=== PATIENT | female | born 1945 | race Caucasian/White ===

== ENCOUNTER 2016-10-14 08:55 | Inpatient (IN) | payer BC, MEDICARE ==
[~2016-10-14] VITALS: Ht 165.1 cm; Wt 123.4 kg
--- NOTE | ~2016-10-14 | WRIGHTHP ---
[place], [place] PATIENT HISTORY AND PHYSICAL EXAM NAME: [id number] UNIT #: [id number] ROOM: 506 DOCTOR: SAMANTHA MORRELL MD BIRTHDATE: [birth year] DOS: 10/14/2016 HISTORY OF PRESENT ILLNESS: The patient is very well known to us. The patient was on her way to work this morning when she experienced palpitations. She got to her office and noted that her heart was being irregular, so the ambulance was called and she was brought to the Emergency Room where she was found to be in rapid AFib. She has had history of atrial fibrillation, last episode was about 6 years ago. She has been fairly stable, has not had any problems recently. She denied having any complaints of chest pains, palpitations, does not have any fever or chills, has been taking all her medications regularly, does not have any nausea and emesis. She has chronic lymphedema, but there are no new changes noticed otherwise. She has not been drinking a lot of coffee or tea or any caffeinated drinks. PAST MEDICAL HISTORY: Significant for: 1. Last hospitalization for cholecystectomy, for gallstone pancreatitis a year ago. 2. Benign hypertension. 3. Type 2 diabetes mellitus, non-insulin dependent. 4. History of atrial fibrillation. 5. Myasthenia gravis. MEDICATIONS: She is on aspirin 81 daily, atorvastatin 10 daily, flecainide 100 b.i.d., glimepiride 4 mg daily, levothyroxine 50 mcg daily, lisinopril 40 daily. pyridostigmine 60 b.i.d. SOCIAL HISTORY: Nonsmoker, does not use any alcohol. 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 PHYSICAL EXAMINATION: GENERAL: She is morbidly obese. VITAL SIGNS: Graphic trend shows a pressure of 118/67, pulse of 83, respirations 16, temperature 98.5. LUNGS: Diminished breath sounds. No wheezes, rales or rhonchi heard. CARDIOVASCULAR: Irregular, heart rate in the low 100s. ABDOMEN: Obese, soft. EXTREMITIES: Chronic lymphedema. LABORATORY DATA: WBC count is normal at 5.9, hemoglobin 11.8, hematocrit 37.2. Comprehensive: Glucose 220, BUN 26, creatinine 1.29, sodium and potassium are normal. ASSESSMENT AND PLAN: 1. This is a patient who presents with atrial fibrillation with rapid ventricular response. She has history of atrial fibrillation about 5 years ago. She was on Xarelto for a short term at that time, was discontinued by Cardiology. We will arrange for IV heparin protocol, IV Cardizem, which has continued from the ER, beta blockers will be added. Once the heart rate is under control, we will discontinue the Cardizem. 2. Benign hypertension has been controlled in the past. Echocardiogram will be ordered. [place], [place] PATIENT HISTORY AND PHYSICAL EXAM NAME: DAY ALCANTARA UNIT #: [id number] ROOM: [facility] DOCTOR: SAMANTHA MORRELL MD BIRTHDATE: [birth year] 3. Type 2 diabetes mellitus, noninsulin dependent. Check blood sugars twice daily, coverage scale has been ordered along with a diet. SAMANTHA MORRELL MD CM:HISPHYS:PATIENT HISTORY AND PHYSICAL EXAMINATION 1400 [id number] SAMANTHA MORRELL MD 10/14/16 1442 interface
--- NOTE | ~2016-10-14 | DS ---
[place], [place] DISCHARGE SUMMARY NAME: DAY ALCANTARA UNIT #: [id number] ROOM: 506 DOCTOR: SAMANTHA MORRELL MD BIRTHDATE: [birth year] DOS: 10/16/2016 DIAGNOSES: 1. Paroxysmal atrial fibrillation with rapid ventricular response. 2. Long acting use of anticoagulation. 3. Chronic lymphedema. 4. Benign hypertension. 5. Type 2 diabetes mellitus, non-insulin dependent. 6. Myasthenia gravis. HOSPITAL COURSE: This patient is very well known to us, was noted to have a fast heart rate on her way to work. Ambulance was called at work and she was brought to the Emergency Room, heart rate was in the 130s. She was placed on IV Cardizem, IV heparin was admitted. After admission, heart rate slowed down, Lopressor was started and heart rate did come down significantly, sometimes dropped into the 30s. At that time, the Lopressor dosage was cut down. The patient has not had any episodes of rapid ventricular response since admission. She had an echocardiogram ordered, which showed normal LV function, but left atrial dilatation was noted. The patient was placed on Eliquis because this is one of the multiple episodes of AFib that she has had over the years. Dr. Bower was consulted who agreed on the treatment plan. The patient is relatively stable this morning. Plan is to discharge her to home today and follow up as an outpatient. The patient to go back to work on Friday. SAMANTHA MORRELL MD CM:DISCHARG 6 SAMANTHA MORRELL MD 10/16/16916 interface
--- NOTE | ~2016-10-14 | PR ---
[place], [place] PROGRESS NOTE NAME: DAY ALCANTARA UNIT #: [id number] ROOM: 506 DOCTOR: SAMANTHA MORRELL MD BIRTHDATE: [birth year] DOS: SUBJECTIVE: The patient had much better night. She has not had any complaints of dizziness or lightheadedness, does not have any chest pains or palpitations. OBJECTIVE: VITAL SIGNS: Graphic trend shows a pressure of 98/57, pulse of 48, respirations 20, temperature 98.4. LUNGS: Diminished breath sounds. No wheezes, rales or rhonchi heard. HEART: Regular. ABDOMEN: Obese, soft. EXTREMITIES: Without any edema. ASSESSMENT AND PLAN: 1. Paroxysmal atrial fibrillation with rapid ventricular response. The patient has been placed on anticoagulants and a low dose of Lopressor. I noted that she continues to have a slow heart rate, but is not dizzy or lightheaded, so we will maintain the Lopressor 25 mg right now, but will cut back the dosage as an outpatient if necessary. 2. Benign hypertension, controlled. 3. Type 2 diabetes mellitus. Blood sugars are within normal limits 109 this morning. The plan is to discharge her to home today. Echocardiogram showed normal left ventricular function. SAMANTHA MORRELL MD CM:PNTRANS [id number] SAMANTHA MORRELL MD 10/16/16 0923 interface
--- NOTE | ~2016-10-14 | PR ---
[place], [place] PROGRESS NOTE NAME: DAY ALCANTARA UNIT #: [id number] ROOM: 506 DOCTOR: SAMANTHA MORRELL MD BIRTHDATE: [birth year] DOS: 10/15/2016 SUBJECTIVE: The patient states that she did not rest very well, but overall feels okay, does not have any complaints. OBJECTIVE: VITAL SIGNS: Graphic trend shows that she is afebrile. Blood pressure is 113/42, pulse of 72, respirations 20, temperature 97.8. LUNGS: Diminished breath sounds. No wheezes, rales or rhonchi heard. HEART: Irregular. Heart rate in the low 50s. ABDOMEN: Obese, soft, nontender. EXTREMITIES: Without any edema. ASSESSMENT AND PLAN: 1. Atrial fibrillation with rapid ventricular response. Heart rate has slowed down, in fact, went into 30s during the night, so we will cut back on the dose of the Lopressor. We will discontinue heparin, placed on Eliquis as long-term anticoagulant. An echocardiogram and a Cardiology consultation is pending. If there are no untoward side effects after reduction of the Lopressor dosage this morning, the patient should be able to go home tomorrow. 2. Benign hypertension, controlled. 3. Type 2 diabetes mellitus, non-insulin dependent. Blood sugars are well controlled. 4. Myasthenia gravis, stable on her home medications. SAMANTHA MORRELL MD CM:PNTRANS [id number] SAMANTHA MORRELL MD 10/15/16 1614 interface
--- NOTE | ~2016-10-14 | CON ---
[place], [place] REPORT OF CONSULTATION NAME: DAY ALCANTARA UNIT #: [id number] ROOM: 506 DOCTOR: ESTELA CASTAÑEDAMASON BIRTHDATE: [birth year] DOS: 10/15/2016 HISTORY OF PRESENT ILLNESS: I was consulted because the patient had a brief episode of atrial fibrillation. The patient has a known history of previous couple of episodes of atrial fibrillation, had a stress test done last year. According to her, it was normal at several stress tests in the past, but has been in sinus rhythm for about 4-5 weeks. The patient came to the Emergency Room to Dr. Kwan' office. The patient felt short of breath and felt her heart was irregular and she experienced palpitations. She was found to be in atrial fibrillation, rapid ventricular response. The patient was started on Cardizem IV. The patient went back into sinus rhythm and bradycardia. The patient was started on metoprolol 25 b.i.d., which has been discontinued to once a day. She is in sinus rhythm at the rate of about 50. The patient also had an echocardiogram that showed an excellent ejection fraction. PAST MEDICAL HISTORY: Significant for hypertension, diabetes, history of atrial fibrillation, myasthenia gravis. SURGICAL HISTORY: History of cholecystectomy. MEDICATIONS: She is on aspirin, atorvastatin, flecainide 100 b.i.d., glimepiride, levothyroxine, lisinopril, and pyridostigmine. SOCIAL HISTORY: Not a smoker, not an alcoholic. REVIEW OF SYSTEMS: CONSTITUTIONAL: No fever, no chills. HEENT: No visual disturbances or hearing problems. CARDIOVASCULAR: inspiration. RESPIRATORY: As described in HPI. GASTROINTESTINAL: No nausea, no vomiting. GENITOURINARY: No dysuria, hematuria. NEUROLOGIC: Stable. All other review of systems are normal. PHYSICAL EXAMINATION: VITAL SIGNS: She is back into sinus rhythm, heart rate is about 50. NECK: Supple, no JVD. LUNGS: Diminished breath sounds. HEART: Sounds are regular. ABDOMEN: Obese. EXTREMITIES: Intact pulses. NEUROLOGIC: Stable. LABORATORY DATA: Creatinine is 1.2. Cardiac enzymes are normal. Echocardiogram showed an excellent ejection fraction. IMPRESSION: Paroxysmal atrial fibrillation, morbid obesity, hypertension, hyperlipidemia, diabetes mellitus. The patient apparently had a stress test done a year ago by Dr. Kwan, was reported normal. Agree with the present medication with adding small dose of beta blockers to the current regimen of [place], [place] REPORT OF CONSULTATION NAME: DAY ALCANTARA UNIT #: [id number] ROOM: 506 DOCTOR: MASON PALMER MD BIRTHDATE: [birth year] flecainide. Agree with Benny. Monitor the blood pressure very closely and I will closely follow up with you. Thank you for this interesting consultation. MASON PALMER MD CM:CONSTR:REPORT OF CONSULTATION 1111 10/15/16 2109 interface SAMANTHA KWAN MD
[2016-10-14 08:55] VITALS: BP 139/71
[~2016-10-14 08:55] MED LIST: AMARYL4 MG PO; ASPIRIN81 M1 PO; CIPRO500 MG PO; DARVOCET N 1001 TAB PO; DAYPRO600 M1 PO; HYDR25T PO; HYDRODIURIL25 MG PO; LASIX40 MG PO; LEVOFLOXACIN500 MG PO; LIPITOR10 MG PO; LISINOPRIL40 MG PO; LOPRESSOR100 MG PO; LOPRESSOR25 MG PO; PANTOPRAZOLE SO40 MG PO; PERCOCET 325 MG1 TA2 PO; PERCOCET 325 MG1 TA7 PO; PRINIVIL10 MG PO; PRINIVIL20 M1 PO; PYRIDOSTIGMINE60 MG; PYRIDOSTIGMINE60 MG PO; SYNTHROID0.05 MG PO; TAMBOCOR100 MG PO; ULTRAM50 MG PO; VITAMIN B12 IJ; XARELTO10 PO; ZESTRIL,PRINIVI20 MG PO; ZESTRIL,PRINIVI40 MG PO; ZOVIRAX800 MG PO
[2016-10-14 09:28] LABS: BASO % 0.5 % (0.0-1.0); EOS # 0.1 10*3/uL (0.0-0.4); EOS % 1.2 % (1.0-4.0); HEMATOCRIT 37.2 % (37.0-47.0); HEMOGLOBIN 11.8 g/dl (12.0-16.0); LYMPH # 1.9 10*3/uL (1.3-4.4); LYMPH % 31.8 % (27.0-41.0); MEAN CELL VOLUME 92.8 fl (81.0-99.0); MEAN CORPUSCULAR HGB 29.4 pg (27.0-31.0); MEAN CORPUSCULAR HGB CONC 31.7 g/dl (33.0-37.0); MONO # 0.3 10*3/uL (0.1-1.0); MONO % 5.1 % (3.0-9.0); NEUT # 3.6 10*3/uL (2.3-7.9); NEUT % 61.2 % (47.0-73.0); PLATELET COUNT AUTOMATED 257 10*3/uL (130-400); RED BLOOD COUNT 4.01 10*6/uL (4.10-5.10); WHITE BLOOD COUNT 5.9 10*3/uL (4.8-10.8)
[2016-10-14 09:37] LABS: ACT PARTIAL THROMBO TIME 27.1 SECONDS (20.8-31.5)
[2016-10-14 09:46] LABS: ALBUMIN 3.3 gm/dl (3.1-4.5); ALKALINE PHOSPHATASE 148 U/L (45-117); BUN 26 mg/dl (7-24); CHLORIDE 105 mmol/L (98-107); CREATININE 1.29 mg/dL (0.55-1.02); MAGNESIUM 1.8 mg/dL (1.5-2.1); SGOT/AST 14 IU/L (3-35); SGPT/ALT 17 U/L (12-78); SODIUM 139 mmol/L (136-145); TOTAL PROTEIN 7.2 gm/dL (6.4-8.2)
[2016-10-14 09:53] LABS: TROPONIN I < 0.015 ng/ml (<0.045)
[2016-10-14 10:18] VITALS: BP 118/61
[2016-10-14 10:49] VITALS: BP 118/67
[2016-10-14 11:41] LABS: BILIRUBIN NEGATIVE (NEGATIVE); BLOOD NEGATIVE (NEGATIVE); CLARITY CLEAR (CLEAR); COLOR YELLOW (YELLOW); GLUCOSE NEGATIVE (NEGATIVE); KETONE NEGATIVE (NEGATIVE); LEUKO ESTERASE NEGATIVE (NEGATIVE); NITRITE NEGATIVE (NEGATIVE); PH 6.5 (5.0-9.0); SPECIFIC GRAVITY <= 1.005 (1.005-1.030); UROBILINOGEN 0.2 E.U./dl (0.2-1.0)
[2016-10-14 11:49] LABS: BACTERIA TRACE; MUCOUS 1+; RBC 0-2 rbc/hpf (0-2)
[2016-10-14 16:00] VITALS: BP 120/70
[2016-10-14 20:00] VITALS: BP 107/50
[2016-10-15] VITALS: BP 115/52
[2016-10-15 04:00] VITALS: BP 121/57
[2016-10-15 08:00] VITALS: BP 113/42
[2016-10-15 16:00] VITALS: BP 123/57
[2016-10-15 20:00] VITALS: BP 123/59
[2016-10-16] VITALS: BP 98/57
[2016-10-16] MEDS ORDERED: ELIQUIS5 M1 PO (07:14)
[2016-10-16] MEDS ORDERED: LOPRESSOR25 MG PO (07:14)
[2016-10-16 08:00] VITALS: BP 115/43
[2016-10-16 12:00] VITALS: BP 129/54
== END 2016-10-16 15:10 | disposition home or self-care (01) | DRG 310 ==
LOC: ED 08:55 → 5E 09:41 → EDHOLD 09:41 → 5E 09:54
PROVIDERS: Emergency Medicine; ADMIT Internal Medicine
DX: I48.0 Paroxysmal atrial fibrillation (principal); G70.00 Myasthenia gravis without (acute) exacerbation; E66.01 Morbid (severe) obesity due to excess calories; I50.9 Heart failure, unspecified; I11.0 Hypertensive heart disease with heart failure; E11.9 Type 2 diabetes mellitus without complications; J32.9 Chronic sinusitis, unspecified; I89.0 Lymphedema, not elsewhere classified; E78.5 Hyperlipidemia, unspecified; Z90.49 Acquired absence of other specified parts of digestive tract; Z79.01 Long term (current) use of anticoagulants; Z98.49 Cataract extraction status, unspecified eye; Z88.0 Allergy status to penicillin; Z83.3 Family history of diabetes mellitus; Z82.3 Family history of stroke; Z82.49 Family history of ischemic heart disease and other diseases of the circulatory system; Z68.27 Body mass index [BMI] 27.0-27.9, adult

== ENCOUNTER → 2016-11-25 | Outpatient (CLI) | payer BC, MEDICARE ==
[~2016-11-25] MED LIST changes: +ELIQUIS5 M1 PO
[2016-11-25 13:33] LABS: CHOLESTEROL 213 mg/dL (<200); HDL CHOLESTEROL 54 mg/dl (40-60); LDL CHOLESTEROL 115 mg/dL (9-159); TRIGLYCERIDES 222 mg/dl (<150); VLDL CHOLESTEROL 44 mg/dL (6-40)
== END | disposition home or self-care (01) ==
LOC: LAB 12:04 → US 14:30
PROVIDERS: Internal Medicine
DX: M79.89 Other specified soft tissue disorders (principal); I51.7 Cardiomegaly; I10 Essential (primary) hypertension; E11.9 Type 2 diabetes mellitus without complications; M47.894 Other spondylosis, thoracic region; R60.0 Localized edema; E78.5 Hyperlipidemia, unspecified

== ENCOUNTER 2017-02-05 03:46 | Inpatient (IN) | payer BC, MEDICARE ==
[2017-02-05] VITALS (20 sets, daily range): BP systolic 113–174; BP diastolic 61–98
[~2017-02-05] VITALS: Ht 165.1 cm; Wt 124.7 kg
--- NOTE | ~2017-02-05 | DS ---
[place], [place] DISCHARGE SUMMARY NAME: DAY ALCANTARA UNIT #: [id number] ROOM: 506 DOCTOR: MEEK CRONIN MD BIRTHDATE: [birth year] DOS: 02/06/2017 DISCHARGE DIAGNOSES: 1. Atrial fibrillation with rapid ventricular response. 2. Urinary tract infection with 25,000 colonies of light gram-negative bacilli. 3. History of chronic lymphedema involving lower extremities. 4. Morbid obesity. 5. Myasthenia gravis. 6. Type 2 diabetes mellitus. 7. Benign essential hypertension. HOSPITAL COURSE: The patient presented to [facility] Emergency Department with complaints of palpitations, which she says she does feel them off and on. The patient was found to be in atrial fibrillation with rapid ventricular response of 140 beats per minute. The patient started on IV Cardizem and she converted to normal sinus rhythm. The patient remained in normal sinus rhythm after admission to the hospital and heart rates have ranged between 60-70 beats per minute, mostly. The patient is asymptomatic and no dizziness or fainting episodes. No more palpitations. The patient was evaluated by her fire battalion chief, Dr. Bower, during her stay at the hospital and he has cleared her for discharge. The patient will be kept on her home medications and asked to follow up with her primary care physician, Dr. Homa Kwan, next week. 1. Benign Essential hypertension. Blood pressure is controlled with diltiazem. 2. Chronic paroxysmal atrial fibrillation treated with flecainide and apixaban. 3. Hypothyroidism. The patient on levothyroxine. 4. Type 2 diabetes mellitus. Blood sugars were monitored and appeared to be reasonably controlled. 5. Myasthenia gravis is being treated. 6. Chronic lymphedema involving both lower extremities, treated with compression. LABORATORY DATA: Urine cultures growing light gram-negative bacilli only 25,000 colonies. Normal CBC. IMPRESSION: The patient with paroxysmal atrial fibrillation and rapid ventricular response, went back into normal sinus rhythm after use of IV Cardizem in the Emergency Room. The patient is not having any palpitations or tachycardia anymore and Dr. Bower, her fire battalion chief, has cleared her for discharge to home. Follow up with the PCP next week. No dizziness or fainting episodes. 1. Type 2 diabetes mellitus. Blood sugars reasonably controlled. 2. Morbid obesity, generalized weakness and adult failure to thrive along with myasthenia gravis. 3. Benign essential hypertension with controlled blood pressures. 4. Chronic lymphedema involving lower extremities, treated with compression wraps. 5. The patient is asymptomatic and being discharged to home to follow up with her PCP. [place], [place] DISCHARGE SUMMARY NAME: DAY ALCANTARA UNIT #: [id number] ROOM: 506 DOCTOR: MEEK CRONIN MD BIRTHDATE: [birth year] LABORATORY DATA: Urine cultures as mentioned above, the patient requires antibiotic treatment depending on culture results. Otherwise, she has no urinary symptoms. Chest x-ray without any acute abnormality. PT, PTT were baseline. Normal CBC. DISCHARGE MANAGEMENT: Lisinopril 40 mg a day, furosemide 80 mg a day, Lipitor 10 mg a day, glimepiride 4 mg a day, levothyroxine 50 mcg daily, apixaban 5 mg b.i.d., pyridostigmine 60 mg b.i.d. Flecainide 100 mg b.i.d. The patient has mixed hyperlipidemia treated with Lipitor and patient is anticoagulated with apixaban for her paroxysmal atrial fibrillation. MEEK CRONIN MD CM:XAVIER [id number] MEEK CRONIN MD 02/06/17 2254 interface
--- NOTE | ~2017-02-05 | WRIGHTHP ---
[place], [place] PATIENT HISTORY AND PHYSICAL EXAM NAME: [id number] UNIT #: [id number] ROOM: 506 DOCTOR: MEEK CRONIN MD BIRTHDATE: [birth year] DOS: 02/05/2017 HISTORY OF PRESENT ILLNESS: The patient is a 71-year-old female with a past medical history of: 1. Paroxysmal atrial fibrillation, patient on anticoagulation for atrial fibrillation. 2. Chronic lymphedema involving lower extremities. 3. Benign essential hypertension. 4. Type 2 diabetes mellitus. 5. Myasthenia gravis. The patient presented to the Emergency Department at [facility], complains of palpitations which she gets off and on. No dizziness or fainting episodes. No chest pains. REVIEW OF SYSTEMS: LUNGS: No increasing shortness of breath. GASTROINTESTINAL: No nausea, vomiting, diarrhea, constipation. CARDIOVASCULAR: Recurrent palpitations. FAMILY HISTORY: Noncontributory. HOME MEDICATIONS: , diltiazem, flecainide, apixaban, levothyroxine, glyburide, atorvastatin, furosemide, lisinopril. ALLERGIES: Known allergies to PENICILLIN. SOCIAL HISTORY: Denies smoking cigarettes, alcohol and drug abuse. PHYSICAL EXAMINATION: GENERAL: Alert, oriented x 3, morbidly obese. VITAL SIGNS: Blood pressure 142/63, heart rate 58 beats per minute, breathing 20 times per minute, temperature 98.1 degrees Fahrenheit. Normal H and H and CBC. HEENT AND NECK: Extraocular movements are intact. Sclerae are anicteric. Oral mucosa is moist and clean. No obvious facial weakness. Neck is supple without any lymphadenopathy. No thyromegaly. No JVD. No carotid arterial bruits. LUNGS: Clear to auscultation. No wheezing. No rhonchi. CARDIOVASCULAR SYSTEM: Heart rate is regular in rate and rhythm. S1 and S2 normally audible. No significant murmur or any other abnormal cardiac sounds. ABDOMEN: Soft, nontender. No obvious organomegaly. Bowel sounds are present. No obvious herniation. EXTREMITIES: Without significant cyanosis or edema. Warm to touch. CENTRAL NERVOUS SYSTEM: Alert and oriented x 3. Cranial nerves II-XII are intact. Speech is normal. The patient is able to move all extremities. Normal muscle strength. Deep tendon reflexes are equal on both sides. Plantars were downgoing. IMPRESSION: 1. The patient presenting with acute atrial fibrillation with rapid ventricular [place], [place] PATIENT HISTORY AND PHYSICAL EXAM NAME: DAY ALCANTARA UNIT #: [id number] ROOM: [facility] DOCTOR: ROSEANNE CASTAÑEDA,MEEK Foster BIRTHDATE: [birth year] response, heart rate up to 140 beats per minute. The patient was given Cardizem in the Emergency Department and she came back to sinus rhythm at the heart rate of around 60 beats per minute. The patient has been otherwise asymptomatic. No dizziness or fainting episodes. No chest pains. 2. Paroxysmal atrial fibrillation with palpitations off and on. Her computer hardware developer, Dr. Bower has been consulted to adjust her treatment. The patient is already on anticoagulation with apixaban and also takes flecainide. 3. Morbid obesity. The patient to work with the dietary. 4. Mixed hyperlipidemia, treated with atorvastatin. 5. Type 2 diabetes mellitus. We will keep her on no concentrated sweet diet and continue glimepiride. 6. Benign essential hypertension. Blood pressures to be monitored and I will continue her on lisinopril. MEEK CRONIN MD CM:HISPHYS:PATIENT HISTORY AND PHYSICAL EXAMINATION [id number] [id number] MEEK CRONIN MD 02/05/17 1122 interface
[2017-02-05 04:06] LABS: BASO % 0.3 % (0.0-1.0); EOS # 0.1 10*3/uL (0.0-0.4); EOS % 1.2 % (1.0-4.0); HEMATOCRIT 38.2 % (37.0-47.0); HEMOGLOBIN 12.5 g/dl (12.0-16.0); LYMPH # 2.6 10*3/uL (1.3-4.4); LYMPH % 34.4 % (27.0-41.0); MEAN CORPUSCULAR HGB 28.8 pg (27.0-31.0); MEAN CORPUSCULAR HGB CONC 32.7 g/dl (33.0-37.0); MEAN PLATELET VOLUME 9.9 fl (9.6-12.3); MONO # 0.5 10*3/uL (0.1-1.0); MONO % 6.2 % (3.0-9.0); NEUT # 4.3 10*3/uL (2.3-7.9); NEUT % 57.8 % (47.0-73.0); PLATELET COUNT AUTOMATED 263 10*3/uL (130-400); RED BLOOD COUNT 4.34 10*6/uL (4.10-5.10); RED CELL DISTRI WIDTH 14.2 % (0-14.5); WHITE BLOOD COUNT 7.4 10*3/uL (4.8-10.8)
[2017-02-05] MEDS ORDERED: FUROSEMIDE40 MG PO (04:07)
[2017-02-05] MEDS ORDERED: Lopressor25 MG PO (04:08)
[2017-02-05] MEDS ORDERED: LISINOPRIL40 MG PO (04:08)
[2017-02-05 04:16] LABS: ACT PARTIAL THROMBO TIME 27.6 SECONDS (20.8-31.5)
[2017-02-05 04:56] LABS: ALBUMIN 3.5 gm/dl (3.1-4.5); ALKALINE PHOSPHATASE 161 U/L (45-117); BUN 20 mg/dl (7-24); CHLORIDE 104 mmol/L (98-107); CREATININE 1.02 mg/dL (0.55-1.02); POTASSIUM 3.5 mmol/L (3.5-5.1); SGOT/AST 13 IU/L (3-35); SGPT/ALT 17 U/L (12-78); SODIUM 142 mmol/L (136-145); TOTAL PROTEIN 7.3 gm/dL (6.4-8.2); TROPONIN I < 0.015 ng/ml (<0.045)
[2017-02-05 09:03] LABS: BILIRUBIN NEGATIVE (NEGATIVE); BLOOD NEGATIVE (NEGATIVE); CLARITY CLOUDY (CLEAR); COLOR YELLOW (YELLOW); GLUCOSE NEGATIVE (NEGATIVE); KETONE NEGATIVE (NEGATIVE); LEUKO ESTERASE TRACE (NEGATIVE); NITRITE NEGATIVE (NEGATIVE); PH 6.5 (5.0-9.0); UROBILINOGEN 0.2 E.U./dl (0.2-1.0)
[2017-02-05 09:19] LABS: EPITHELIAL CELLS 15-20; RBC 16-20 rbc/hpf (0-2)
[2017-02-05 09:20] LABS: BACTERIA 2+
[2017-02-06] VITALS: BP 146/56
[2017-02-06 04:00] VITALS: BP 141/64
[2017-02-06 08:00] VITALS: BP 147/67
[2017-02-06 12:00] VITALS: BP 158/86
[2017-02-06 16:00] VITALS: BP 146/63
== END 2017-02-06 18:01 | disposition home or self-care (01) | DRG 309 ==
LOC: ED 03:46 → EDHOLD 05:05 → 5E 05:05
PROVIDERS: Student in an Organized Health Care Education/Training Program; ADMIT Internal Medicine
DX: I48.0 Paroxysmal atrial fibrillation (principal); N39.0 Urinary tract infection, site not specified; G70.00 Myasthenia gravis without (acute) exacerbation; E11.9 Type 2 diabetes mellitus without complications; E66.01 Morbid (severe) obesity due to excess calories; B96.89 Other specified bacterial agents as the cause of diseases classified elsewhere; E03.9 Hypothyroidism, unspecified; I10 Essential (primary) hypertension; I48.2 Chronic atrial fibrillation; E78.2 Mixed hyperlipidemia; Z79.899 Other long term (current) drug therapy; Z79.01 Long term (current) use of anticoagulants; Z68.42 Body mass index [BMI] 45.0-49.9, adult; Z88.0 Allergy status to penicillin

== ENCOUNTER 2017-06-14 07:15 | Emergency (ER) | payer BC, MEDICARE ==
[~2017-06-14] VITALS: Ht 167.6 cm; Wt 120.2 kg
[~2017-06-14 07:15] MED LIST changes: +FUROSEMIDE40 MG PO; +Lopressor25 MG PO
[2017-06-14 07:36] LABS: BASO % 0.3 % (0.0-1.0); EOS # 0.1 10*3/uL (0.0-0.4); EOS % 1.1 % (1.0-4.0); HEMOGLOBIN 12.6 g/dl (12.0-16.0); LYMPH # 1.5 10*3/uL (1.3-4.4); LYMPH % 23.5 % (27.0-41.0); MEAN CELL VOLUME 88.8 fl (81.0-99.0); MEAN CORPUSCULAR HGB 28.7 pg (27.0-31.0); MEAN CORPUSCULAR HGB CONC 32.3 g/dl (33.0-37.0); MONO # 0.3 10*3/uL (0.1-1.0); MONO % 5.3 % (3.0-9.0); NEUT # 4.5 10*3/uL (2.3-7.9); NEUT % 69.3 % (47.0-73.0); PLATELET COUNT AUTOMATED 258 10*3/uL (130-400); RED BLOOD COUNT 4.39 10*6/uL (4.10-5.10); RED CELL DISTRI WIDTH 14.3 % (0-14.5); WHITE BLOOD COUNT 6.5 10*3/uL (4.8-10.8)
[2017-06-14 07:46] LABS: ACT PARTIAL THROMBO TIME 27.6 SECONDS (20.8-31.5)
[2017-06-14 07:54] LABS: ALKALINE PHOSPHATASE 147 U/L (45-117); BUN 23 mg/dl (7-24); CHLORIDE 106 mmol/L (98-107); POTASSIUM 3.9 mmol/L (3.5-5.1); SGOT/AST 12 IU/L (3-35); SGPT/ALT 17 U/L (12-78); SODIUM 141 mmol/L (136-145); TOTAL PROTEIN 6.7 gm/dL (6.4-8.2)
[2017-06-14 07:55] LABS: TROPONIN I < 0.015 ng/ml (<0.045)
[2017-06-14 10:19] VITALS: BP 91/43
== END 2017-06-14 11:44 | disposition home or self-care (01) ==
LOC: ED 07:15
PROVIDERS: Emergency Medicine
DX: R07.89 Other chest pain (principal); R00.2 Palpitations; I48.91 Unspecified atrial fibrillation; I50.9 Heart failure, unspecified; Z98.890 Other specified postprocedural states; Z90.49 Acquired absence of other specified parts of digestive tract; Z79.899 Other long term (current) drug therapy; Z88.0 Allergy status to penicillin; Z79.01 Long term (current) use of anticoagulants

== ENCOUNTER → 2017-07-16 | Outpatient (CLI) | payer BC, MEDICARE | END | disposition home or self-care (01) | LOC: MAMMO 13:49 | DX: Z12.31 Encounter for screening mammogram for malignant neoplasm of breast (principal) ==

== ENCOUNTER → 2017-11-12 | Outpatient (CLI) | payer BC | END | disposition home or self-care (01) | LOC: RAD 16:23 | DX: M19.011 Primary osteoarthritis, right shoulder (principal) ==

== ENCOUNTER 2018-12-28 18:32 | Inpatient (IN) | payer BC, MEDICARE ==
[~2018-12-28] VITALS: Ht 165.1 cm; Wt 130.0 kg
--- NOTE | ~2018-12-28 | WRIGHTHP ---
[place], [place] PATIENT HISTORY AND PHYSICAL EXAM NAME: DAY ALCANTARA UNIT #: [id number] ROOM: 406 DOCTOR: SAMANTHA MORRELL MD BIRTHDATE: [birth year] DOS: HISTORY OF PRESENT ILLNESS: This patient is 73 years old. She says for the last 2-3 weeks, she has not felt very good. She did not have any chest pains or palpitations. She has not checked her blood pressures, had a little puppy that scratched her right leg and developed quite a lot of bleeding, so she decided to come into the Emergency Room. In the ER, her blood pressure was extremely elevated systolic in the 200s, even after medications were given, the pressure did not come down a whole lot. She was admitted. She denies having any fever, any chills, any chest pains or palpitations. Does not have any abdominal pain, nausea, emesis. PAST MEDICAL HISTORY: Significant for: 1. Benign hypertension. 2. Permanent atrial fibrillation. 3. Morbid obesity with a BMI of more than 50. 4. Type 2 diabetes mellitus. 5. Myasthenia gravis. MEDICATIONS: Medications that she is currently on are atorvastatin 10 daily, Eliquis 5 b.i.d., Tambocor 100 b.i.d., Lasix 80 daily, glimepiride 4 daily, levothyroxine 50 mcg daily, lisinopril 40 daily, metoprolol 12.5 mg 1-1/2 tablets by mouth daily, oxybutynin 5 b.i.d., Protonix 40 daily, pyridostigmine 60 b.i.d. SOCIAL HISTORY: Nonsmoker, does not use any alcohol. 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 PHYSICAL EXAMINATION: GENERAL: She is awake and alert and oriented. VITAL SIGNS: Blood pressure was finally come down to 152/58. Graphic trend shows a pressure again 142/58, pulse of 65, respirations 18, temperature 98.6. LUNGS: Diminished breath sounds. No wheezes, rales or rhonchi heard. HEART: Regular. ABDOMEN: Obese, soft, nontender. EXTREMITIES: Without any edema. ASSESSMENT AND PLAN: 1. Benign hypertension, poorly controlled with hypertensive crisis. The patient was given hydralazine. The blood pressure did come down finally this morning. 2. Small laceration in the right leg, which is not much of a concern right now, she is having local dressings. 3. Type 2 diabetes mellitus, controlled. 4. Myasthenia gravis without any evidence of any acute decompensation. [place], [place] PATIENT HISTORY AND PHYSICAL EXAM NAME: DAY ALCANTARA UNIT #: [id number] ROOM: [facility] DOCTOR: SAMANTHA MORRELL MD BIRTHDATE: [birth year] SAMANTHA MORRELL MD CM:HISPHYS:PATIENT HISTORY AND PHYSICAL EXAMINATION 9 8 SAMANTHA MORRELL MD 12/29/18937 interface
--- NOTE | ~2018-12-28 | PR ---
[place], [place] PROGRESS NOTE NAME: DAY ALCANTARA UNIT #: [id number] ROOM: 406 DOCTOR: SAMANTHA MORRELL MD BIRTHDATE: [birth year] DOS: 12/30/2018 SUBJECTIVE: The patient is doing well without any complaints this morning on 12/30/2018. OBJECTIVE: VITAL SIGNS: Blood pressure is much improved this morning, it is 122/42, pulse is 60, respirations 20, temperature 98.1. LUNGS: Clear. HEART: Irregular. ABDOMEN: Obese, soft. EXTREMITIES: No edema. There is a small wound noticed on the right leg. Heavy Gram-negative bacteria in urine culture, not identified. ASSESSMENT AND PLAN: 1. Heavy Gram-negative bacteria in the urine, p.o. Ceftin will be started. 2. Hypertensive crisis. Blood pressure is much improved. The patient is stable. The plan is to discharge to home today to be followed up as an outpatient. SAMANTHA MORRELL MD CM:PNTRANS [id number] SAMANTHA MORRELL MD 12/31/18 0406 interface
--- NOTE | ~2018-12-28 | EKG ---
[place], [place] ELECTROCARDIOGRAM REPORT NAME: DAY ALCANTARA UNIT #: [id number] ROOM: 406 DOCTOR: PAYAL DRAFT REPORT BIRTHDATE: [birth year] [facility] Test Date: 2018-12-28 Test Time: 19:04:37 Pat Name: DAY ALCANTARA Department: Room: 406 Gender: F Jigman: Luna Mcpherson : 1945 Requested By: JOANNA HANCOCK Order Number: [id number] Reading MD: Danny Liu MD Measurements Intervals [place] Rate: 66 P: 21 GA: 229 QRS: -17 QRSD: 97 T: 32 QT: 429 QTc: 450 Interpretive Statements Sinus rhythm Prolonged GA interval Borderline left axis deviation Low voltage, precordial leads Abnormal R-wave progression, late transition Electronically Signed On 12-30-2018 6:38:33 PST by Danny Liu MD CM:EKGRPT:ELECTROCARDIOGRAM REPORT 03 0638 JOANNA HANCOCK EPIPHANY DRAFT REPORT JOANNA HANCOCK
[2018-12-28 18:34] VITALS: BP 227/100
[2018-12-28 18:48] VITALS: BP 220/90
[2018-12-28 18:58] VITALS: BP 228/95
[2018-12-28 19:07] LABS: BASO % 0.4 % (0.0-1.0); EOS # 0.1 10*3/uL (0.0-0.4); EOS % 0.9 % (1.0-4.0); HEMATOCRIT 37.7 % (37.0-47.0); HEMOGLOBIN 12.2 g/dl (12.0-16.0); LYMPH % 25.6 % (27.0-41.0); MEAN CELL VOLUME 90.4 fl (81.0-99.0); MEAN CORPUSCULAR HGB 29.3 pg (27.0-31.0); MEAN CORPUSCULAR HGB CONC 32.4 g/dl (33.0-37.0); MEAN PLATELET VOLUME 10.1 fl (9.6-12.3); MONO # 0.5 10*3/uL (0.1-1.0); NEUT # 5.2 10*3/uL (2.3-7.9); NEUT % 66.8 % (47.0-73.0); PLATELET COUNT AUTOMATED 273 10*3/uL (130-400); RED BLOOD COUNT 4.17 10*6/uL (4.10-5.10); RED CELL DISTRI WIDTH 14.6 % (0-14.5); WHITE BLOOD COUNT 7.8 10*3/uL (4.8-10.8)
[2018-12-28 19:26] VITALS: BP 210/90
[2018-12-28 19:28] LABS: ALBUMIN 3.4 gm/dl (3.1-4.5); ALKALINE PHOSPHATASE 137 U/L (45-117); BUN 17 mg/dl (7-24); CHLORIDE 107 mmol/L (98-107); CREATININE 1.08 mg/dL (0.55-1.02); POTASSIUM 4.3 mmol/L (3.5-5.1); SGOT/AST 36 IU/L (3-35); SGPT/ALT 16 U/L (12-78); SODIUM 139 mmol/L (136-145); TOTAL PROTEIN 7.5 gm/dL (6.4-8.2)
[2018-12-28 19:30] LABS: TROPONIN I < 0.015 ng/ml (<0.045)
[2018-12-28] MEDS ORDERED: OXYBUTYNIN5 MG PO (20:11)
[2018-12-28] MEDS ORDERED: PROTONIX40 MG PO (20:14)
[2018-12-28 20:30] VITALS: BP 222/97
--- NOTE | 2018-12-28 20:30 | NUR ---
The assessment has been completed. VERN BROWN
--- NOTE | 2018-12-28 20:53 | NUR ---
Time: 2029 A 73 year old FEMALE admitted to under services of SAMANTHA WHELAN MD. Pt. arrived via ambulatory from ER. Chief complaint: HYPERTENSIVE URGENCY, SUPERFICIAL LACERATION. HISSOM,VERN
--- NOTE | 2018-12-28 21:00 | NUR ---
INFORMED DR MORRELL OF PTS ARRIVAL. ALSO THAT BP WAS 222/97. STATED TO GIVE 100MG PO OF APRESOLINE NOW AND THEN 100MG PO APRESOLINE QID. ALSO STATED TO CONTINUE ALL HOME MEDICATIONS.
[2018-12-28 22:54] VITALS: BP 102/52
--- NOTE | 2018-12-28 22:54 | NUR ---
BP IS NOW 102/52. WILL NOTIFY DR MORRELL.
--- NOTE | 2018-12-28 23:02 | NUR ---
SPOKE WITH DR MORRELL REGARDING BP. STATED TO HOLD 12PM DOSE OF 100MG PO APRESOLINE.
[2018-12-29] VITALS (8 sets, daily range): BP systolic 122–184; BP diastolic 53–80
--- NOTE | 2018-12-29 00:34 | NUR ---
BP NOW 122/58.
--- NOTE | 2018-12-29 01:18 | NUR ---
Patient resting quietly in bed with no c/o discomfort. Respirations easy and regular. Vital signs stable. No overt distress. Call light within reach. HISSOM,VERN
--- NOTE | 2018-12-29 02:01 | NUR ---
24 HR chart check completed.
--- NOTE | 2018-12-29 04:02 | NUR ---
BP IS NOW 136/54 MANUALLY
--- NOTE | 2018-12-29 05:38 | NUR ---
PT COMPLAINING OF HEADACHE. SPOKE WITH DR MORRELL WHO STATED TO GIVE A 1X DOSE OF TYLENOL 650MG PO. ALSO INFORMED HER THAT PTS BP WAS 142/58 THIS MORNING. STATED TO NOT GIVE 100MG PO APRESOLINE.
--- NOTE | 2018-12-29 05:56 | NUR ---
BLOOD SUGAR 136
--- NOTE | 2018-12-29 06:38 | NUR ---
PT COMPLAINS OF 6/10 HEADACHE. MEDICATED PER ORDER. WILL CONTINUE TO MONITOR FOR RELIEF. VOICES NO OTHER CONERNS. RESTING IN BED. CALL LIGHT WITHIN REACH
--- NOTE | 2018-12-29 07:11 | NUR ---
DAY ALCANTARA [id number] Please refer to the physician's history and physical for past medical history, comorbid conditions, and allergies. Diagnosis: HYPERTENSIVE URGENCY SUPERFICIAL LACERATION Selwyn Score: 22,LOW OR NO RISK WOUND DESCRIPTIONS: Wound Number: 1 Location of the wound: right lower extremity Type of wound: laceration Thickness: Partial Size: 0.4cm x 1.7cm x 0.1cm Tunneling: none Undermining: none Sinus Tract: none Presence of Exudate: Serous Amount: Heavy Color: Red Odor: None Periwound Skin Appearance: Edema Wound edges: approximated Pain (associated with wound): none at time of assessment How does patient state this happened? pt stated he dog toenail went throught her slack and cut her Surface the patient is resting on: Isoflex SKIN PREVENTION RECOMMENDATION: 1. Pressure redistribution support surface as appropriate 2. Elevate heels 3. Remove boots/TEDS every shift and reapply 4. Head of bed 30 degrees as tolerated 5. Assess nutrition and hydration 6. Manage moisture 7. Avoid the use of containment devices while in bed 8. Use absorptive products on surfaces limit layers of linens on bed 9. Turn and reposition every 1-2 hours in bed and every 1 hour in chair as tolerated 10. Weight shifts every 15 minutes while up in chair 11. Offloading with pillows or device to keep heels elevated off bed 12. Monitor skin at least every shift 13. Inspect under medical devices twice a day WOUND TREATMENT RECOMMENDATIONS: Cleanse right lower extremity with nss and apply bactroban ointment bid and cover with dsd bid and prn for soiling.
--- NOTE | 2018-12-29 08:45 | NUR ---
DR MORRELL ROUNDED AND ORDERS RECIEVED.
--- NOTE | 2018-12-29 10:30 | NUR ---
Tractor Operator Helper in to talk to patient. Patient states lives at home alone with her brother living in [place] and her best friend living about a block away. She states she lives in an apartment complex with 4 apartments and a courtyard in the middle. She states everyone looks out for everyone. There are 2-3 steps in the home. Physician: Dr. Homa Kwan Pharmacy: [facility] Home health services: none Patient's level of ADLs: INDEPENDENT Patient has working utilities: yes DME: none Follow-up physician's appointment after d/c: she prefers to make her own follow up appt after discharge Does patient want to access PORTAL?: no Discharge plan discussed with patient. She lives at home alone with family and friends close by checking in on her. She is independent in her ADLs and ambulation. Discussed home health care services and she denies any home needs at this time. When medically stable she will be discharged to home. She states she will drive herself home as she drove herself here. Her car is in the ER parking lot. Security notified. GEORGETTE FOX
[2018-12-29 13:19] LABS: BILIRUBIN 1+ (NEGATIVE); BLOOD NEGATIVE (NEGATIVE); CLARITY SL CLOUDY (CLEAR); COLOR YELLOW (YELLOW); GLUCOSE NEGATIVE (NEGATIVE); KETONE NEGATIVE (NEGATIVE); LEUKO ESTERASE NEGATIVE (NEGATIVE); NITRITE NEGATIVE (NEGATIVE)
[2018-12-29 13:54] LABS: RBC 0-2 rbc/hpf (0-2)
[2018-12-29 13:55] LABS: BACTERIA 2+; MUCOUS TRACE
--- NOTE | 2018-12-29 20:00 | NUR ---
PATIENT ASSESSMENT COMPLETED AT THIS TIME WITHOUT INCIDENT, PATIENT DENIES ANY CHEST PAIN/PRESSURE OR SHORTNESS OF BREATH. CALL LIGHT WITHIN REACH WILL CONTINUE TO MONITOR.
--- NOTE | 2018-12-29 22:20 | NUR ---
DRESSING TO RIGHT LOWER LEG CHANGED AT THIS TIMEM PER WOUND ORDERS
--- NOTE | 2018-12-29 23:10 | NUR ---
24 HOUR CHART CHECK COMPLETED
[2018-12-30] VITALS: BP 152/65
--- NOTE | 2018-12-30 04:02 | NUR ---
PATIENT RESTING IN BED IN A POSITION OF COMFORT, EYES CLOSED, RESPIRATIONS EASY AND NON-LABORED AT THIS TIME, CARIDAC MONITOR INTACT. CALL LIGHT WITHIN REACH WILL CONTINUE TO MONITOR
[2018-12-30 08:00] VITALS: BP 122/42
[2018-12-30] MEDS ORDERED: APRESOLINE25 MG PO (08:28)
--- NOTE | 2018-12-30 09:00 | NUR ---
Employment Agency Manager in to see patient. She is laying in bed without distress noted. No new needs or request at this time. She denies any home needs. She states Dr. Kwan told her she has to have an echo done this morning and then she will be discharged. When medically stable she will be discharged to home. 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 She states she will need a return to work slip and she plans to retire in February.
[2018-12-30] MEDS ORDERED: CIPRO500 MG PO (09:08)
[2018-12-30 12:00] VITALS: BP 125/56
--- NOTE | 2018-12-30 13:34 | NUR ---
WOUNDCARE PHOTOS COMPLETED PER PROTOCOL. DRSG CHANGE TO RLE COMPLETED PER PHYSICIAN ORDER.
--- NOTE | 2018-12-30 13:50 | NUR ---
Discharge instructions reviewed with patient/family. Patient receptive and verbalizes understanding. Follow-up care arranged. Written instructions given to patient/family. DAY CHAIDEZ
== END 2018-12-30 13:50 | disposition home or self-care (01) | DRG 305 ==
LOC: ED 18:32 → EDHOLD 20:07 → 4E 20:07
PROVIDERS: Nurse Practitioner Family; ADMIT Internal Medicine
DX: I16.0 Hypertensive urgency (principal); S81.811A Laceration without foreign body, right lower leg, initial encounter; X58.XXXA Exposure to other specified factors, initial encounter; E11.9 Type 2 diabetes mellitus without complications; I48.21 Permanent atrial fibrillation; E66.01 Morbid (severe) obesity due to excess calories; G70.00 Myasthenia gravis without (acute) exacerbation; I10 Essential (primary) hypertension; Z88.0 Allergy status to penicillin; Z90.49 Acquired absence of other specified parts of digestive tract; Z98.49 Cataract extraction status, unspecified eye; Z83.3 Family history of diabetes mellitus; Z82.49 Family history of ischemic heart disease and other diseases of the circulatory system; Z82.3 Family history of stroke; Y93.89 Activity, other specified; Y92.89 Other specified places as the place of occurrence of the external cause; Y99.8 Other external cause status

== ENCOUNTER → 2019-04-21 | Outpatient (CLI) | payer MEDICARE, OTHER ==
[~2019-04-21] MED LIST changes: +APRESOLINE25 MG PO; +OXYBUTYNIN5 MG PO; +PROTONIX40 MG PO
[2019-04-21 08:07] LABS: BASO % 0.3 % (0.0-1.0); EOS # 0.1 10*3/uL (0.0-0.4); EOS % 1.4 % (1.0-4.0); HEMATOCRIT 36.8 % (37.0-47.0); HEMOGLOBIN 11.6 g/dl (12.0-16.0); LYMPH # 1.8 10*3/uL (1.3-4.4); LYMPH % 28.4 % (27.0-41.0); MEAN CELL VOLUME 91.5 fl (81.0-99.0); MEAN CORPUSCULAR HGB 28.9 pg (27.0-31.0); MEAN CORPUSCULAR HGB CONC 31.5 g/dl (33.0-37.0); MEAN PLATELET VOLUME 9.5 fl (9.6-12.3); MONO # 0.5 10*3/uL (0.1-1.0); NEUT % 62.6 % (47.0-73.0); PLATELET COUNT AUTOMATED 274 10*3/uL (130-400); RED BLOOD COUNT 4.02 10*6/uL (4.10-5.10); RED CELL DISTRI WIDTH 15.3 % (0-14.5); WHITE BLOOD COUNT 6.5 10*3/uL (4.8-10.8)
[2019-04-21 08:46] LABS: ALBUMIN 3.2 gm/dl (3.1-4.5); CREATININE 1.31 mg/dL (0.55-1.02); TOTAL PROTEIN 7.1 gm/dL (6.4-8.2)
[2019-04-21 08:53] LABS: FREE T4 1.19 ng/dl (0.76-1.46); THYROID STIM HORMONE (HS) 3.6 uIU/ml (0.358-4.75)
[2019-04-21 10:10] LABS: VITAMIN D, 25-HYDROXY 11.2 ng/mL (30-100)
== END | disposition home or self-care (01) ==
LOC: LAB 07:47 → MAMMO 08:30
PROVIDERS: Internal Medicine
DX: Z12.31 Encounter for screening mammogram for malignant neoplasm of breast (principal); I10 Essential (primary) hypertension; E11.9 Type 2 diabetes mellitus without complications; E55.9 Vitamin D deficiency, unspecified; E78.2 Mixed hyperlipidemia

== ENCOUNTER → 2020-01-27 | Outpatient (CLI) | payer MEDICARE, OTHER | END | disposition home or self-care (01) | LOC: US 00:13 | PROVIDERS: ATTEND Internal Medicine | DX: I65.21 Occlusion and stenosis of right carotid artery (principal); R00.2 Palpitations ==

== ENCOUNTER 2020-04-17 14:17 | Emergency (ER) | payer MEDICARE, OTHER ==
[~2020-04-17] VITALS: Ht 167.6 cm; Wt 122.5 kg
[2020-04-17 14:24] VITALS: BP 136/58
== END 2020-04-17 17:07 | disposition home or self-care (01) ==
LOC: ED 14:17
DX: S60.211A Contusion of right wrist, initial encounter (principal); Z88.0 Allergy status to penicillin; Z79.899 Other long term (current) drug therapy; Z79.2 Long term (current) use of antibiotics; Z90.49 Acquired absence of other specified parts of digestive tract; X58.XXXA Exposure to other specified factors, initial encounter; Y93.89 Activity, other specified; Y92.89 Other specified places as the place of occurrence of the external cause; Y99.8 Other external cause status

== ENCOUNTER → 2020-10-25 | Outpatient (CLI) | payer MEDICARE, OTHER ==
[2020-10-25 08:18] LABS: BASO % 0.3 % (0.0-1.0); EOS # 0.1 10*3/uL (0.0-0.4); EOS % 1.8 % (1.0-4.0); HEMATOCRIT 36.4 % (37.0-47.0); LYMPH # 2.1 10*3/uL (1.3-4.4); LYMPH % 30.8 % (27.0-41.0); MEAN CELL VOLUME 90.3 fl (81.0-99.0); MEAN CORPUSCULAR HGB 28.8 pg (27.0-31.0); MEAN CORPUSCULAR HGB CONC 31.9 g/dl (33.0-37.0); MEAN PLATELET VOLUME 9.7 fl (9.6-12.3); MONO # 0.5 10*3/uL (0.1-1.0); MONO % 7.4 % (3.0-9.0); NEUT % 59.4 % (47.0-73.0); PLATELET COUNT AUTOMATED 276 10*3/uL (130-400); RED BLOOD COUNT 4.03 10*6/uL (4.10-5.10); RED CELL DISTRI WIDTH 14.6 % (0-14.5); WHITE BLOOD COUNT 6.8 10*3/uL (4.8-10.8)
[2020-10-25 08:46] LABS: ALBUMIN 3.1 gm/dl (3.1-4.5); CREATININE 1.62 mg/dL (0.55-1.02); FREE T4 1.06 ng/dl (0.76-1.46); POTASSIUM 4.1 mmol/L (3.5-5.1); TOTAL PROTEIN 7.1 gm/dL (6.4-8.2)
[2020-10-25 08:51] LABS: THYROID STIM HORMONE (HS) 2.98 uIU/ml (0.358-4.75)
[2020-10-25 09:31] LABS: VITAMIN D, 25-HYDROXY 12.9 ng/mL (30-100)
== END | disposition home or self-care (01) ==
LOC: LAB 07:58
PROVIDERS: ATTEND Internal Medicine
DX: E11.9 Type 2 diabetes mellitus without complications (principal); E55.9 Vitamin D deficiency, unspecified; I10 Essential (primary) hypertension; E03.9 Hypothyroidism, unspecified

== ENCOUNTER → 2021-06-20 | Outpatient (CLI) | payer MEDICARE, OTHER ==
[~2021-06-20] MED LIST changes: +FLECAINIDE ACE100 M1 PO; +METOPROLOL SUCC25 M2 PO
== END | disposition home or self-care (01) ==
LOC: RAD 01:44 → MAMMO 09:30
PROVIDERS: ATTEND Internal Medicine
DX: Z12.31 Encounter for screening mammogram for malignant neoplasm of breast (principal); Z13.820 Encounter for screening for osteoporosis; Z78.0 Asymptomatic menopausal state

== ENCOUNTER → 2021-06-25 | Outpatient (CLI) | payer MEDICARE, OTHER | LOC: CARD 01:27 | PROVIDERS: ATTEND Internal Medicine | DX: R07.9 Chest pain, unspecified (principal) ==

== ENCOUNTER → 2021-09-19 | Outpatient (CLI) | payer OTHER ==
[2021-09-19 09:44] LABS: BASO % 0.7 % (0.0-1.0); EOS # 0.1 10*3/uL (0.0-0.4); EOS % 1.1 % (1.0-4.0); HEMATOCRIT 35.5 % (37.0-47.0); LYMPH # 1.5 10*3/uL (1.3-4.4); LYMPH % 25.2 % (27.0-41.0); MEAN CELL VOLUME 86.4 fl (81.0-99.0); MEAN CORPUSCULAR HGB 27.3 pg (27.0-31.0); MEAN CORPUSCULAR HGB CONC 31.5 g/dl (33.0-37.0); MEAN PLATELET VOLUME 9.4 fl (9.6-12.3); MONO # 0.4 10*3/uL (0.1-1.0); NEUT % 65.5 % (47.0-73.0); PLATELET COUNT AUTOMATED 355 10*3/uL (130-400); RED BLOOD COUNT 4.11 10*6/uL (4.10-5.10); RED CELL DISTRI WIDTH 14.4 % (0-14.5); WHITE BLOOD COUNT 6.1 10*3/uL (4.8-10.8)
[2021-09-19 10:05] LABS: CREATININE 1.29 mg/dL (0.55-1.02); POTASSIUM 3.6 mmol/L (3.5-5.1)
[2021-09-19 10:13] LABS: FREE T4 1.24 ng/dl (0.76-1.46); THYROID STIM HORMONE (HS) 1.87 uIU/ml (0.358-4.75); TOTAL PROTEIN 7.1 gm/dL (6.4-8.2)
== END | disposition home or self-care (01) ==
LOC: LAB 09:07
PROVIDERS: ATTEND Internal Medicine
DX: I10 Essential (primary) hypertension (principal); D51.9 Vitamin B12 deficiency anemia, unspecified; E11.9 Type 2 diabetes mellitus without complications; E55.9 Vitamin D deficiency, unspecified; R73.09 Other abnormal glucose; Z13.0 Encounter for screening for diseases of the blood and blood-forming organs and certain disorders involving the immune mechanism; Z13.89 Encounter for screening for other disorder; Z13.1 Encounter for screening for diabetes mellitus; Z13.21 Encounter for screening for nutritional disorder; Z13.220 Encounter for screening for lipoid disorders; Z13.228 Encounter for screening for other metabolic disorders; Z13.6 Encounter for screening for cardiovascular disorders; Z13.9 Encounter for screening, unspecified

== ENCOUNTER → 2022-10-14 | Outpatient (CLI) | payer OTHER ==
[2022-10-14 08:53] LABS: BASO # 0.1 10*3/uL (0.0-0.1); BASO % 0.7 % (0.0-1.0); EOS # 0.1 10*3/uL (0.0-0.4); EOS % 1.2 % (1.0-4.0); HEMATOCRIT 37.6 % (37.0-47.0); LYMPH # 2.2 10*3/uL (1.3-4.4); LYMPH % 26.2 % (27.0-41.0); MEAN CELL VOLUME 89.1 fl (81.0-99.0); MEAN CORPUSCULAR HGB CONC 31.4 g/dl (33.0-37.0); MEAN PLATELET VOLUME 9.7 fl (9.6-12.3); MONO # 0.5 10*3/uL (0.1-1.0); NEUT # 5.6 10*3/uL (2.3-7.9); NEUT % 65.5 % (47.0-73.0); PLATELET COUNT AUTOMATED 309 10*3/uL (130-400); RED BLOOD COUNT 4.22 10*6/uL (4.10-5.10); RED CELL DISTRI WIDTH 15.6 % (0-14.5); WHITE BLOOD COUNT 8.5 10*3/uL (4.8-10.8)
[2022-10-14 09:41] LABS: ALKALINE PHOSPHATASE 136 U/L (46-116); BUN 22 mg/dl (9-23); CHLORIDE 105 mmol/L (98-107); CHOLESTEROL 175 mg/dL (<200); FREE T4 1.22 ng/dl (0.89-1.76); LDL CHOLESTEROL 96 mg/dL (9-159); TOTAL PROTEIN 7.1 gm/dL (6.0-8.0); TRIGLYCERIDES 190 mg/dl (<150)
[2022-10-14 09:42] LABS: SGPT/ALT < 7 U/L (10-49)
== END | disposition home or self-care (01) ==
LOC: LAB 01:05 → MAMMO 08:00
PROVIDERS: ATTEND Internal Medicine
DX: Z12.31 Encounter for screening mammogram for malignant neoplasm of breast (principal); I10 Essential (primary) hypertension; E11.9 Type 2 diabetes mellitus without complications; D51.9 Vitamin B12 deficiency anemia, unspecified; D51.0 Vitamin B12 deficiency anemia due to intrinsic factor deficiency; E55.9 Vitamin D deficiency, unspecified

== ENCOUNTER → 2023-06-03 | Outpatient (CLI) | payer MEDICARE ==
[2023-06-03 07:56] LABS: BASO % 0.4 % (0.0-1.0); EOS # 0.1 10*3/uL (0.0-0.4); EOS % 1.5 % (1.0-4.0); HEMATOCRIT 38.9 % (37.0-47.0); LYMPH # 2.3 10*3/uL (1.3-4.4); LYMPH % 29.7 % (27.0-41.0); MEAN CELL VOLUME 89.2 fl (81.0-99.0); MEAN CORPUSCULAR HGB 27.5 pg (27.0-31.0); MEAN CORPUSCULAR HGB CONC 30.8 g/dl (33.0-37.0); MONO # 0.6 10*3/uL (0.1-1.0); MONO % 7.1 % (3.0-9.0); NEUT # 4.8 10*3/uL (2.3-7.9); PLATELET COUNT AUTOMATED 290 10*3/uL (130-400); RED BLOOD COUNT 4.36 10*6/uL (4.10-5.10); RED CELL DISTRI WIDTH 15.2 % (0-14.5); WHITE BLOOD COUNT 7.8 10*3/uL (4.8-10.8)
[2023-06-03 08:22] LABS: ALKALINE PHOSPHATASE 118 U/L (46-116); BUN 27 mg/dl (9-23); CHLORIDE 103 mmol/L (98-107); CHOLESTEROL 195 mg/dL (<200); FREE T4 1.14 ng/dl (0.89-1.76); LDL CHOLESTEROL 110 mg/dL (9-159); POTASSIUM 4.6 mmol/L (3.4-5.1); TRIGLYCERIDES 202 mg/dl (<150)
[2023-06-03 08:27] LABS: SGPT/ALT < 7 U/L (5-49)
[2023-06-03 08:37] LABS: VITAMIN D, 25-HYDROXY 47.9 ng/mL (30-100)
== END | disposition home or self-care (01) ==
LOC: LAB 01:54
PROVIDERS: ATTEND Internal Medicine
DX: Z13.1 Encounter for screening for diabetes mellitus (principal); Z13.0 Encounter for screening for diseases of the blood and blood-forming organs and certain disorders involving the immune mechanism; Z13.21 Encounter for screening for nutritional disorder; Z13.220 Encounter for screening for lipoid disorders; Z13.228 Encounter for screening for other metabolic disorders; Z13.29 Encounter for screening for other suspected endocrine disorder; Z13.6 Encounter for screening for cardiovascular disorders; Z13.9 Encounter for screening, unspecified; Z13.89 Encounter for screening for other disorder; I10 Essential (primary) hypertension; J44.9 Chronic obstructive pulmonary disease, unspecified; E11.9 Type 2 diabetes mellitus without complications

== ENCOUNTER 2023-09-22 03:22 | Emergency (ER) | payer MEDICARE ==
[~2023-09-22] VITALS: Ht 165.1 cm; Wt 120.2 kg
[2023-09-22 03:27] VITALS: BP 183/79
[2023-09-22 03:52] LABS: BASO % 0.6 % (0.0-1.0); EOS # 0.1 10*3/uL (0.0-0.4); HEMATOCRIT 39.1 % (37.0-47.0); LYMPH % 28.1 % (27.0-41.0); MEAN CELL VOLUME 89.9 fl (81.0-99.0); MEAN CORPUSCULAR HGB CONC 31.2 g/dl (33.0-37.0); MEAN PLATELET VOLUME 9.9 fl (9.6-12.3); MONO # 0.5 10*3/uL (0.1-1.0); MONO % 7.2 % (3.0-9.0); NEUT # 4.4 10*3/uL (2.3-7.9); NEUT % 62.7 % (47.0-73.0); PLATELET COUNT AUTOMATED 282 10*3/uL (130-400); RED BLOOD COUNT 4.35 10*6/uL (4.10-5.10); RED CELL DISTRI WIDTH 14.8 % (0-14.5)
[2023-09-22 04:15] LABS: TOTAL PROTEIN 7.3 gm/dL (6.0-8.0)
== END 2023-09-22 04:38 | disposition home or self-care (01) ==
LOC: ED 03:22
PROVIDERS: Internal Medicine
DX: R00.2 Palpitations (principal); I48.91 Unspecified atrial fibrillation; E11.22 Type 2 diabetes mellitus with diabetic chronic kidney disease; I12.9 Hypertensive chronic kidney disease with stage 1 through stage 4 chronic kidney disease, or unspecified chronic kidney disease; N18.32 Chronic kidney disease, stage 3b; E03.9 Hypothyroidism, unspecified; Z88.0 Allergy status to penicillin; Z90.49 Acquired absence of other specified parts of digestive tract; Z98.890 Other specified postprocedural states

== ENCOUNTER 2024-04-10 22:49 | Emergency (ER) | payer OTHER ==
[~2024-04-10] VITALS: Ht 167.6 cm; Wt 90.7 kg
[2024-04-10 23:21] LABS: BASO % 0.4 % (0.0-1.0); EOS % 0.4 % (1.0-4.0); HEMATOCRIT 38.1 % (37.0-47.0); MEAN CELL VOLUME 87.4 fl (81.0-99.0); MEAN CORPUSCULAR HGB 27.8 pg (27.0-31.0); MEAN CORPUSCULAR HGB CONC 31.8 g/dl (33.0-37.0); MEAN PLATELET VOLUME 9.2 fl (9.6-12.3); MONO # 0.6 10*3/uL (0.1-1.0); MONO % 6.4 % (3.0-9.0); NEUT # 5.3 10*3/uL (2.3-7.9); NEUT % 58.8 % (47.0-73.0); PLATELET COUNT AUTOMATED 377 10*3/uL (130-400); RED BLOOD COUNT 4.36 10*6/uL (4.10-5.10); RED CELL DISTRI WIDTH 14.2 % (0-14.5); WHITE BLOOD COUNT 9.1 10*3/uL (4.8-10.8)
[2024-04-10 23:39] LABS: POTASSIUM 3.8 mmol/L (3.4-5.1)
[2024-04-11 00:21] VITALS: BP 165/60
== END 2024-04-11 01:30 | disposition home or self-care (01) ==
LOC: ED 22:49
PROVIDERS: Internal Medicine
DX: R00.2 Palpitations (principal); E11.9 Type 2 diabetes mellitus without complications; I10 Essential (primary) hypertension; E03.9 Hypothyroidism, unspecified; I48.91 Unspecified atrial fibrillation; Z79.899 Other long term (current) drug therapy; Z88.0 Allergy status to penicillin; Z90.49 Acquired absence of other specified parts of digestive tract; Z98.890 Other specified postprocedural states

== ENCOUNTER 2024-09-22 16:50 | Emergency (ER) | payer OTHER ==
[~2024-09-22] VITALS: Wt 117.5 kg
[2024-09-22 17:20] VITALS: BP 98/48
== END 2024-09-22 20:57 | disposition home or self-care (01) ==
LOC: ED 16:50
DX: S00.03XA Contusion of scalp, initial encounter (principal); I10 Essential (primary) hypertension; E11.9 Type 2 diabetes mellitus without complications; E03.9 Hypothyroidism, unspecified; Z79.899 Other long term (current) drug therapy; Z88.0 Allergy status to penicillin; Z90.49 Acquired absence of other specified parts of digestive tract; Z98.890 Other specified postprocedural states; W18.39XA Other fall on same level, initial encounter; Y93.01 Activity, walking, marching and hiking; Y92.89 Other specified places as the place of occurrence of the external cause; Y99.8 Other external cause status

== ENCOUNTER 2024-12-25 23:21 | Emergency (ER) | payer OTHER ==
[~2024-12-25] VITALS: Ht 165.1 cm; Wt 115.7 kg
[2024-12-26 00:12] LABS: BASO # 0.0 10*3/uL (0.0-0.1); BASO % 0.6 % (0.0-1.0); EOS # 0.1 10*3/uL (0.0-0.4); EOS % 0.8 % (1.0-4.0); MEAN CELL VOLUME 91.4 fl (81.0-99.0); MEAN CORPUSCULAR HGB 28.7 pg (27.0-31.0); MEAN PLATELET VOLUME 9.5 fl (9.6-12.3); MONO # 0.4 10*3/uL (0.1-1.0); MONO % 6.2 % (3.0-9.0); NEUT # 4.3 10*3/uL (2.3-7.9); NEUT % 69.5 % (47.0-73.0); NUCLEATED RED BLOOD CELL 0.0 % (0.0-0.0); NUCLEATED RED BLOOD CELL 0.0 10*3/uL (0.0-0.0); PLATELET COUNT AUTOMATED 273 10*3/uL (130-400); RED CELL DISTRI WIDTH 14.5 % (0-14.5)
[2024-12-26 00:33] LABS: BUN 18 mg/dl (9-23)
[2024-12-26 00:34] LABS: SGPT/ALT < 7 U/L (5-49)
[2024-12-26 03:00] VITALS: BP 125/53
== END 2024-12-26 04:03 | disposition home or self-care (01) ==
LOC: ED 23:21
PROVIDERS: Emergency Medicine
DX: I48.91 Unspecified atrial fibrillation (principal); E11.65 Type 2 diabetes mellitus with hyperglycemia; G47.00 Insomnia, unspecified; E78.5 Hyperlipidemia, unspecified; E66.01 Morbid (severe) obesity due to excess calories; I12.9 Hypertensive chronic kidney disease with stage 1 through stage 4 chronic kidney disease, or unspecified chronic kidney disease; E11.22 Type 2 diabetes mellitus with diabetic chronic kidney disease; N18.32 Chronic kidney disease, stage 3b; Z98.890 Other specified postprocedural states; Z90.49 Acquired absence of other specified parts of digestive tract